=== PATIENT | female | born 1945 | race Caucasian/White ===

== ENCOUNTER 2017-02-14 10:22 | Day surgery (SDC) | payer MEDICARE, OTHER ==
[~2017-02-14] VITALS: Ht 165.1 cm; Wt 79.5 kg
[2017-02-14] MEDS ORDERED: SODIUM CHLORIDE 0.9% 1,000 ML IV ONE (10:49)
[2017-02-14] MEDS ORDERED: CHOL100012 PO (11:08)
[2017-02-14] MEDS ORDERED: ASPI-621 PO (11:08)
[2017-02-14] MEDS ORDERED: ISOS30TA8 PO (11:08)
[2017-02-14] MEDS ORDERED: UBID100C41 PO (11:08)
[2017-02-14] MEDS ORDERED: vital reds PO (11:08)
[2017-02-14] MEDS ORDERED: CALC1CAP8 PO (11:08)
[2017-02-14] MEDS ORDERED: MULT-6 PO (11:08)
[2017-02-14] MEDS ORDERED: BACI1TAB3 PO (11:08)
[2017-02-14] MEDS ORDERED: VITA1TAB86 PO (11:08)
[2017-02-14] MEDS ORDERED: [UNRECOGNIZED DRUG - OTHER] PO (11:08)
[2017-02-14] MEDS ORDERED: ROSU5TAB PO (11:08)
[2017-02-14] MEDS ORDERED: METO25TA35 PO (11:08)
[2017-02-14 11:12] VITALS: BP 121/53
[2017-02-14] MEDS ORDERED: MIDAZOLAM 1 MG/ML, 5ML ONE (12:36)
[2017-02-14] MEDS ORDERED: FENTANYL PF 100 MCG/2ML ONE (12:36)
[2017-02-14] MEDS ORDERED: BIVALIRUDIN 250 MG ONE (12:37)
[2017-02-14] MEDS ORDERED: VERAPAMIL 2.5 MG/ML, 2ML ONE (12:37)
[2017-02-14] MEDS ORDERED: TICAGRELOR 90 MG TABLET ONE (12:37)
[2017-02-14] MEDS ORDERED: LIDOCAINE 2%, 20ML ONE (12:37)
[2017-02-14] MEDS ORDERED: HEPARIN 1,000 UNITS/ML, 10ML ONE (12:37)
[2017-02-14] MEDS ORDERED: NITROGLYCERIN 5 MG/ML, 10ML ONE (13:00)
[2017-02-14] MEDS ORDERED: SODIUM CHLORIDE 0.9% 1,000 ML IV SCH (13:30)
[2017-02-14] MEDS ORDERED: TEMPLATE NON-FORMULARY MED. (Rosuvastatin Calcium** (Crestor**) 5 MG) PO SCH (15:00)
[2017-02-14] MEDS ORDERED: METOPROLOL TARTRATE 25 MG TABLET PO SCH (21:00)
[2017-02-14] MEDS ORDERED: TEMPLATE NON-FORMULARY MED. (Calcium Carbonate/Vitamin D3** (Calcium 600 + D3 Softgel**) 1 PO SCH (21:00)
[2017-02-14] MEDS ORDERED: VITAMIN C PO SCH (21:00)
[2017-02-14] MEDS ORDERED: BIOTIN PO SCH (21:00)
[2017-02-15] MEDS ORDERED: VITAL REDS PO SCH (09:00)
[2017-02-15] MEDS ORDERED: CHOLECALCIFEROL 1000 UNIT PO SCH (09:00)
[2017-02-15] MEDS ORDERED: MULTIVITAMIN 1 TABLET PO SCH (09:00)
[2017-02-15] MEDS ORDERED: ISOSORBIDE MONONITRATE ER 30 MG TABLET PO SCH (09:00)
[2017-02-15] MEDS ORDERED: TEMPLATE NON-FORMULARY MED. (Ubidecarenone** (Co Q-10**) 100 MG) PO SCH (09:00)
[2017-02-15] MEDS ORDERED: [UNRECOGNIZED DRUG - OTHER] PO SCH (09:00)
[2017-02-15] MEDS ORDERED: ASPIRIN 81 MG TABLET EC PO SCH (09:00)
[2017-02-15] MEDS ORDERED: BACILLUS COAGULANS PO SCH (09:00)
== END 2017-02-14 15:48 ==
LOC: CACL 10:22
PROVIDERS: ATTEND Internal Medicine Cardiovascular Disease
DX: I20.0 Unstable angina (principal); E78.2 Mixed hyperlipidemia; Z88.8 Allergy status to other drugs, medicaments and biological substances; Z87.891 Personal history of nicotine dependence; Z72.89 Other problems related to lifestyle; Z79.82 Long term (current) use of aspirin
CPT/HCPCS: 93458; 99156; C1769; C1894; J1644; J2250; J3010; J3490; J7030; Q9967; J0583